=== PATIENT | female | born 1995 | race Caucasian/White ===

== ENCOUNTER → 2018-05-26 15:31 | Outpatient (CLI) | payer MEDICAID ==
[2016-03-21 10:38] VITALS: BMI 27.2
[~2018-05-26 15:31] MED LIST: BUPRENORPHINE HC8 MG SL; PERCOCET 10/3251 TA1 PO; PRENATAL LOW IR1 TAB PO
== END | disposition home or self-care (01) ==
LOC: D.LDO 15:31
DX: O36.8120 Decreased fetal movements, second trimester, not applicable or unspecified (principal); Z3A.22 22 weeks gestation of pregnancy

== ENCOUNTER 2018-06-01 18:10 | Outpatient (CLI) | payer MEDICAID ==
[2016-03-21 10:38] VITALS: BMI 27.2
== END 2018-06-01 22:49 ==
LOC: D.LDO 18:10
DX: O44.10 Complete placenta previa with hemorrhage, unspecified trimester (principal); Z3A.00 Weeks of gestation of pregnancy not specified

== ENCOUNTER 2018-08-10 02:34 | Inpatient (IN) | payer MEDICAID ==
[~2018-08-10] VITALS: Ht 152.4 cm; Wt 68.2 kg
[2018-08-10] VITALS (21 sets, daily range): BP systolic 103–131; BP diastolic 57–79; Ht 152.4 cm; Wt 68.2 kg
--- NOTE | ~2018-08-10 | OP ---
PATIENT NAME: GUILLERMO WOLFE MEDICAL RECORD: [id number] :89 LOCATION:[facility] D.1278 ADMISSION DATE:08/10/18 SURGEON: VISHNU TAYLOR MD DATE OF OPERATION: 08/10/2018 PREOPERATIVE DIAGNOSES: 1. at 38 weeks gestation. 2. Active labor. 3. History of prior section. 4. Poor care. 5. Drug abuse (methamphetamine). 6. Skin infection. 7. Undesired fertility. POSTOPERATIVE DIAGNOSES: 1. at 38 weeks gestation. 2. Active labor. 3. History of prior section. 4. Poor care. 5. Drug abuse (methamphetamine). 6. Skin infection. 7. Undesired fertility. PROCEDURES: 1. Low transverse section. 2. Bilateral tubal ligation. SURGEON: Vishnu Taylor MD JUKEBOX OPERATOR: Wicho Self. ANESTHETIC: Spinal. FINDINGS: Approximately 2-3 cm abscess cavity on the left lower abdomen above the Pfannenstiel incision. This has no purulent drainage. At the time of section, the abdominal anatomy is unremarkable. Unremarkable tubes, ovaries, and uterus. Female infant in the vertex presentation, Apgars 9 and 9, weight 5 pounds 11 ounces. SPECIMEN REMOVED: Placenta. SPECIMEN DISPOSITION: Discarded. ESTIMATED BLOOD LOSS: 700 cc. URINE OUTPUT: 200 cc of clear urine. FLUIDS: 2300 cc of lactated Ringer's. INDICATIONS: The patient is a 22-year-old G5, para 4 with 4 prior sections who presents to labor and delivery with painful regular contractions every 2 minutes apart. The patient was seen one time in triage in this with an ultrasound, which puts her at 38 and 3. The patient also noted to have a placenta previa at that time. The patient has undesired fertility and desires tubal ligation at this time. The patient understands OPERATIVE REPORT [id number] GUILLERMO WOLFE risks, benefits as well as limitations of this procedure. The patient acknowledges all risks and wishes to proceed. DESCRIPTION OF PROCEDURE: After informed consent was assured, the patient was taken to the operating room where anesthetic was obtained without difficulty. The patient was now prepped and draped in the usual sterile fashion. Ioban is used to cover the abdomen anterior and the abdominal skin infection. An incision was now made over the old Pfannenstiel incision carried down to the underlying layer of the fascia, which was opened in the midline and extended laterally. Rectus bellies were dissected free and then the rectus bellies were in the midline. Peritoneum was entered sharply and peritoneal opening was extended with good visualization of the bladder. The DeLee all-purpose retractor was inserted. Bladder flap developed and then this retractor re-inserted. Low transverse hysterotomy was performed and the was delivered on to the abdomen atraumatically. The cord was doubly clamped and cut and the was passed to the attendant. The placenta was delivered via Crede maneuver and the uterus cleared of all clot and debris and exteriorized. The uterus was now closed in a running locked fashion with chromic stitch. An [place] stitch was used on the left side due to continued bleeding at the left corner. The right tube was elevated, window developed in the antimesenteric portion and 2 ligatures passed through this window. The ligatures were tied in the proximal and distal segment and the intervening segment of tube excised and the ostia cauterized. This was repeated on the contralateral side. Again, a window was developed and 2 ligatures passed through this opening. Ligatures were secured proximally and distally and then the intervening segment of tube was removed. Ostia cauterized. The uterus was returned to the abdomen. Inspection of the hysterotomy revealed adequate hemostasis. The pelvis was irrigated and irrigant removed. The rectus bellies were reapproximated in the midline with loose interrupted chromic stitches. The fascia was now closed in a running locked fashion with looped PDS. After closing the fascia, the subcutaneous tissue was irrigated. Bleeding vessels cauterized and the skin was reapproximated with benji. The sterile dressing was applied. Bactroban will be placed over the ruptured caruncle and this dressing changed twice a day. The patient will be placed on clindamycin for a skin infection and increased risk of Pfannenstiel incision infection. TRANSINT:[id number] Voice Confirmation ID: [id number] DOCUMENT ID: [id number] VISHNU TAYLOR MD at 1329 CC: [id number] DICTATION DATE: 08/10/18 0428 FIXED CAPITAL CLERK: 08/10/18 0552 [facility] IN [facility] [address] [place] [address]
--- NOTE | ~2018-08-10 | DS ---
PATIENT:GUILLERMO WOLFE :89 MEDICAL RECORD: [id number] DISCHARGE SUMMARY ADMISSION DATE: 08/10/18 DISCHARGE DATE: 08/12/18 DATE OF ADMISSION: 08/10/2018 DATE OF DISCHARGE: 08/12/2018 ADMISSION DIAGNOSES: 1. Active labor at term. 2. Poor care. 3. Drug use in . 4. Abdominal wall cellulitis. 5. Unwanted fertility. DISCHARGE DIAGNOSES: 1. Active labor at term. 2. Poor care. 3. Drug use in . 4. Abdominal wall cellulitis. 5. Unwanted fertility PROCEDURE: 1. Repeat low transverse section. 2. tubal ligation. ATTENDING: Em Taylor MD HISTORY OF PRESENT ILLNESS: See the H&P in the chart. SUMMARY OF HOSPITALIZATION: The patient was admitted in active labor, underwent a section with a tubal ligation. The patient was noted to have abdominal wall abscess and this was treated during her hospitalization. The patient will be discharged on antibiotics. accounting advisory services manager consult was obtained at admission. At discharge, infant delivered and infant at home will be in custody of child protective services. I have asked the patient to follow up in 2 weeks for an incision check. Standard precautions have been reviewed. TRANSINT:[id number] Voice Confirmation ID: [id number] DOCUMENT ID: [id number] EM TAYLOR MD at 0817 CC: [id number] DICTATION DATE: 08/26/18 1246 CNC MANUFACTURING ENGINEER: 08/26/18 2146 DIS IN 08/12/18 [address] [id number] [place] [address]
[2018-08-10 02:54] LABS: HEMATOCRIT 34.1 % (36.0-48.0); HEMOGLOBIN 11.3 g/dL (12-16); MCH 27.6 pg (26.0-34.0); MCHC 33.1 g/dL (31.0-37.0); MCV 83.4 fL (80.0-100.0); MEAN PLATELET VOLUME 10.9 fL (7.4-10.4); RBC 4.09 10x6/uL (4.00-5.40); RDW 15.5 % (11.5-14.5); WBC 11.7 10x3/uL (4.8-10.8)
[2018-08-10 03:10] LABS: APPEARANCE HAZY (CLEAR); BILIRUBIN NEGATIVE (NEGATIVE); COLOR YELLOW (YELLOW); GLUCOSE 50 mg/dL (NEGATIVE); KETONE NEGATIVE (NEGATIVE); NITRITE NEGATIVE (NEGATIVE); PH 6.5 (5.0-6.0); PROTEIN NEGATIVE (NEGATIVE); SPECIFIC GRAVITY 1.015 (1.005-1.020); UROBILINOGEN NORMAL (NORMAL)
[2018-08-10 03:19] LABS: BACTERIA MODERATE /hpf (NONE SEEN); EPITHELIAL CELLS 0-5 /hpf (0-5); RED CELLS - URINE OCC /hpf (0-5); WHITE CELLS - URINE 0-5 /hpf (0-5)
[2018-08-10 03:25] LABS: UDS - AMPHET POSITIVE QUAL (NEGATIVE); UDS - BARB NEGATIVE QUAL (NEGATIVE); UDS - BENZO NEGATIVE QUAL (NEGATIVE); UDS - COCAINE NEGATIVE QUAL (NEGATIVE); UDS - OPIATE NEGATIVE QUAL (NEGATIVE); UDS - PCP NEGATIVE QUAL (NEGATIVE); UDS - THC NEGATIVE QUAL (NEGATIVE)
[2018-08-11] VITALS (7 sets, daily range): BP systolic 89–126; BP diastolic 52–71
[2018-08-11 07:30] LABS: RAPID PLASMA REAGIN Non Reactive (Non Reactive)
[2018-08-12 05:01] VITALS: BP 108/53
[2018-08-12] MEDS ORDERED: PERCOCET 5-3251 TAB PO (11:36)
[2018-08-12] MEDS ORDERED: NEURONTIN 300300 MG PO (11:36)
[2018-08-18 15:25] LABS: UDSC - AMPHET Positive (Cutoff=1000); UDSC - BARB Negative ng/mL (Cutoff=300); UDSC - BENZO Negative ng/mL (Cutoff=300); UDSC - COC Negative ng/mL (Cutoff=300); UDSC - METH Negative ng/mL (Cutoff=300); UDSC - OPIATES Negative ng/mL (Cutoff=300); UDSC - PCP Negative ng/mL (Cutoff=25); UDSC - PROPOXY Negative ng/mL (Cutoff=300); UDSC - THC Negative ng/mL (Cutoff=50)
== END 2018-08-12 13:45 | disposition home or self-care (01) | DRG 784 ==
LOC: D.LDO 02:34 → D.LD 02:41
PROVIDERS: Obstetrics & Gynecology
PROC: 10D00Z1 Extraction of Products of Conception, Low, Open Approach (ICD-10-PCS; principal; 2018-08-10 03:16)
PROC: 0UB70ZZ Excision of Bilateral Fallopian Tubes, Open Approach (ICD-10-PCS; 2018-08-10 03:16)
DX: O34.211 Maternal care for low transverse scar from previous cesarean delivery (principal); O99.324 Drug use complicating childbirth; O44.03 Complete placenta previa NOS or without hemorrhage, third trimester; Z30.2 Encounter for sterilization; N73.2 Unspecified parametritis and pelvic cellulitis; F15.10 Other stimulant abuse, uncomplicated; Z3A.38 38 weeks gestation of pregnancy; Z37.0 Single live birth

== ENCOUNTER → 2018-08-27 | Emergency (ER) | payer MEDICAID ==
[2018-08-10 05:24] VITALS: BMI 29.3
[~2018-08-27] MED LIST changes: +NEURONTIN 300300 MG PO; +PERCOCET 5-3251 TAB PO
== END | disposition home or self-care (01) ==
LOC: D.ER 11:42
DX: Z48.02 Encounter for removal of sutures (principal)